=== PATIENT | male | born 1970 | race Hispanic/Latino ===

== ENCOUNTER 2025-02-24 12:21 | Inpatient (IN) | payer OTHER ==
[2025-02-24 13:40] LABS: Absolute Lymphocytes (CBC) 1.6 K/uL (0.7-4.9); Hematocrit 29.4 % (39.6-49.0); Hemoglobin 9.9 g/dL (13.6-17.9); MCH 30.7 pg (27.0-35.0); MCHC 33.5 g/dL (32.0-36.0); MCV 91.4 fL (80-100); MPV 7.8 fL (7.6-11.3); Nucleated RBC Absolute Count 0.0 (0-0); Nucleated Red Blood Cells % 0.0 % (0-0); RBC Red Blood Cell Count 3.22 M/uL (4.33-5.43); White Blood Count 5.20 thou/uL (4.3-10.9)
[2025-02-24 13:58] LABS: Anion Gap 13.0 mEq/L (5.0-15.0); BUN Blood Urea Nitrogen 104.0 mg/dL (7-18); Glucose Level 205.0 mg/dL (74-106); Magnesium 2.7 mg/dL (1.6-2.4); Potassium 6.0 mEq/L (3.5-5.1)
--- NOTE | 2025-02-24 14:23 | ER ---
Nurse's Notes [facility] Name: Chiki Emerson Jr Age: 54 yrs Sex: Male : 1970 Arrival Date: 02/24/2025 Time: 12:21 Bed 19 Private MD: Diagnosis: Hyperkalemia;Chronic kidney disease, unspecified Presentation: 02/24 12:45 Chief complaint: Patient states: HE HAD BLOOD WORK ON SATURDAY AND WAS CALLED AND ADVISED dd2 TO COME TO THE ER WITH A POTASSIUM OF 6.7. Coronavirus screen: At this time, the client does not indicate any symptoms associated with coronavirus-19. Ebola Screen: No symptoms or risks identified at this time. Initial Sepsis Screen: Does the patient meet any 2 criteria? No. Patient's initial sepsis screen is negative. Does the patient have a suspected source of infection? No. Patient's initial sepsis screen is negative. Risk Assessment: Do you want to hurt yourself or someone else? Patient reports no desire to harm self or others. Onset of symptoms was February 24, 2025. 12:45 Method Of Arrival: Ambulatory dd2 12:45 Acuity: HITESH 3 dd2 Triage Assessment: 12:48 General: Appears in no apparent distress. Behavior is calm, cooperative, appropriate dd2 for age. Pain: Denies pain. 12:48 EENT: No deficits noted. No signs and/or symptoms were reported regarding the EENT dd2 system. Neuro: No deficits noted. Cardiovascular: No deficits noted. Respiratory: No deficits noted. GI: No deficits noted. No signs and/or symptoms were reported involving the gastrointestinal system. : No deficits noted. No signs and/or symptoms were reported regarding the genitourinary system. Derm: No deficits noted. No signs and/or symptoms reported regarding the dermatologic system. Musculoskeletal: No deficits noted. No signs and/or symptoms reported regarding the musculoskeletal system. Historical: - Allergies: 12:48 No Known Allergies; dd2 - PMHx: 12:48 Diabetes mellitus; Cerebrovascular accident; Hypertensive disorder; Congestive heart dd2 failure; Myocardial infarction; CAD; Kidney disease; Hypercholesterolemia; - PSHx: 12:48 Appendectomy; TOE AMPUTATION; dd2 - Immunization history:: Adult Immunizations up to date. - Infectious Disease History:: Denies. - Social history:: Smoking status: Patient denies any tobacco usage or history of. Screenin:20 [facility] ED Fall Risk Assessment (Adult) History of falling in the last 3 months, kj2 including since admission No falls in past 3 months (0 pts) Confusion or Disorientation No (0 pts) Intoxicated or Sedated No (0 pts) Impaired Gait No (0 pts) Mobility Assist Device Used No (0 pt) Altered Elimination No (0 pt) Score/Fall Risk Level 0 - 2 = Low Risk Maintained a safe environment, Hourly rounding (assess needs \T\ fall precautionary measures) done. Abuse screen: Denies threats or abuse. Denies injuries from another. Nutritional screening: No deficits noted. Tuberculosis screening: No symptoms or risk factors identified. Assessment: 13:21 Reassessment: Patient appears in no apparent distress at this time. General: Appears in kj2 no apparent distress. Behavior is calm, cooperative. Pain: Denies pain. Neuro: No deficits noted. Cardiovascular: Patient's skin is warm and dry. Respiratory: Airway is patent Respiratory effort is unlabored. GI: No signs and/or symptoms were reported involving the gastrointestinal system. : No signs and/or symptoms were reported regarding the genitourinary system. 14:16 Reassessment: Patient appears in no apparent distress at this time. Patient and/or kj2 family updated on plan of care and expected duration. Pain level reassessed. Patient is alert, oriented x 3, equal unlabored respirations, skin warm/dry/pink. 15:28 Reassessment: Patient appears in no apparent distress at this time. Patient and/or kj2 family updated on plan of care and expected duration. Pain level reassessed. Patient is alert, oriented x 3, equal unlabored respirations, skin warm/dry/pink. 16:56 Reassessment: rechecl glucose at bedside 82bgl. kj2 Vital Signs: 12:45 BP 111 / 67; Pulse 75; Resp 16; Temp 97.9; Pulse Ox 100% ; Weight 102.51 kg; Height 5 dd2 ft. 9 in. ; Pain 0/10; 14:16 BP 93 / 56; Pulse 77; Resp 18; Pulse Ox 100% on R/A; kj2 15:15 BP 103 / 62; Pulse 86; Resp 20; Pulse Ox 100% on R/A; kj2 12:45 Body Mass Index 33.37 (102.51 kg, 175.26 cm) dd2 12:45 Pain Scale: Adult dd2 ED Course: 12:24 Patient arrived in ED. mr 12:24 CatrachoWilberChelleGEOVANNI wang is [facility]. kb 12:24 Chidi Tolliver DO is Attending Physician. kb 12:48 Triage completed. dd2 12:48 Arm band placed on. dd2 13:19 Elizabeth Porter, JJ is Primary Nurse. kj2 13:21 Patient has correct armband on for positive identification. Provided Education on: call kj2 light. 14:17 Inserted saline lock: 20 gauge in left antecubital area, using aseptic technique. Blood kj2 collected. Flushed with 10 mL NS. 14:23 Jose Antonio Sethi MD is Hospitalizing Provider. kb 17:52 No provider procedures requiring assistance completed. Patient admitted, IV remains in kj2 place. Administered Medications: 15:03 Drug: Albuterol Inhalation 2.5 mg Inhalation once Route: Inhalation; kj2 17:51 Follow up: Response: No adverse reaction kj2 15:27 Drug: D50W IVP 50 ml IVP once; (1 amp) Route: IVP; Site: left antecubital; kj2 17:52 Follow up: Response: No adverse reaction kj2 15:27 Drug: Insulin Regular Human IVP 10 units IVP once {Co-Signature: me1 (Michael, kj2 Leyla GARDNER).} Route: IVP; Site: left antecubital; 17:51 Follow up: Response: No adverse reaction kj2 15:27 Drug: Lokelma Powder 10 grams PO once Route: PO; kj2 17:51 Follow up: Response: No adverse reaction kj2 15:27 Drug: NS 0.9% IV 1000 ml IV at 1 bolus Per protocol; to be given as a bolus over 60 kj2 minutes Route: IV; Rate: 1 bolus; Site: left antecubital; 16:40 Follow up: IV Status: Completed infusion; IV Intake: 1000ml kj2 16:35 Drug: Furosemide IVP 40 mg IVP once; give after ns bolus Route: IVP; Site: left kj2 antecubital; 17:51 Follow up: Response: No adverse reaction kj2 17:51 Follow up: Response: No adverse reaction kj2 16:40 Dru.45% NS 1000mL + Sodium BicarbonatE 50 mEq/L - (NS IV 0.45 % 1000 ml, Sodium kj2 Bicarbonate IVP 75 mEq) IV at 100 ml/hr continuous; after NS and Lasix complete Route: IV; Rate: 100 ml/hr; Site: left antecubital; 17:50 Follow up: IV Status: Infusion continued upon admission kj2 Medication: 13:22 VIS not applicable for this client. kj2 Intake: 16:40 IV: 1000ml; Total: 1000ml. kj2 Outcome: 14:23 Decision to Hospitalize by Provider. kb 17:52 Admitted to Tele accompanied by tech, kj2 17:52 Condition: stable 17:53 Patient left the ED. kj2 Signatures: Chelle Hayden, [employer] ACTOR-Meera Fuentes, [place] mr Elizabeth Porter, RN RN kj2 LACEY LEON RN RN dd2 Leyla Rodriguez RN me1
--- NOTE | 2025-02-24 14:23 | EDPHYS ---
Physician Documentation [facility] Name: Chiki Emerson Jr Age: 54 yrs Sex: Male : 1970 Arrival Date: 02/24/2025 Time: 12:21 Bed 19 Private MD: ED Physician Chidi Tolliver HPI: 02/24 12:33 This 54 yrs old Male presents to ER via Unassigned with complaints of Abnormal kb Lab Results. 12:33 Patient is a 54-year-old male who presents for high potassium. States he had his kb routine blood work done on Saturday with Dr. Shaw, got call today that his potassium was 6.7 so he needed to come to the ER. Denies any symptoms.. Historical: - Allergies: 12:48 No Known Allergies; dd2 - PMHx: 12:48 Diabetes mellitus; Cerebrovascular accident; Hypertensive disorder; Congestive heart dd2 failure; Myocardial infarction; CAD; Kidney disease; Hypercholesterolemia; - PSHx: 12:48 Appendectomy; TOE AMPUTATION; dd2 - Immunization history:: Adult Immunizations up to date. - Infectious Disease History:: Denies. - Social history:: Smoking status: Patient denies any tobacco usage or history of. ROS: 12:34 Constitutional: As per HPI kb Exam: 12:34 Constitutional: This is a well developed, well nourished patient who is awake, alert, kb and in no acute distress. Head/Face: Normocephalic, atraumatic. ENT: Moist Mucous membranes Cardiovascular: Regular rate Respiratory: Respirations even and unlabored. No increased work of breathing. Talking in full sentences Skin: Warm, dry with normal turgor. Normal color. MS/ Extremity: Pulses equal, no cyanosis. Neurovascular intact. Full, normal range of motion. Neuro: Awake and alert, GCS 15, oriented to person, place, time, and situation. 15:02 ECG was reviewed by the Attending Physician. kb Vital Signs: 12:45 BP 111 / 67; Pulse 75; Resp 16; Temp 97.9; Pulse Ox 100% ; Weight 102.51 kg; Height 5 dd2 ft. 9 in. ; Pain 0/10; 14:16 BP 93 / 56; Pulse 77; Resp 18; Pulse Ox 100% on R/A; kj2 15:15 BP 103 / 62; Pulse 86; Resp 20; Pulse Ox 100% on R/A; kj2 12:45 Body Mass Index 33.37 (102.51 kg, 175.26 cm) dd2 12:45 Pain Scale: Adult dd2 MDM: 12:24 Medical Screening Exam initiated kb 13:09 Data reviewed: vital signs, nurses notes. kb 14:20 Differential diagnosis: acute kidney injury, hyperkalemia, ekg changes. Consideration kb of Admission/Observation Patient was admitted/placed on observation. Escalation of care including admission/observation considered. Management of patient was discussed with the following: Hospitalist: Mina rossi, pt accepted for admission under Dr Sethi. Historians other than the Patient: Spouse/Significant Other: spouse. Counseling: I had a detailed discussion with the patient and/or guardian regarding the historical points, exam findings, and any diagnostic results supporting the discharge/admit diagnosis, lab results, the need for further work-up and treatment in the hospital. 02/24 12:33 Order name: Basic Metabolic Panel; Complete Time: 14:15 kb 02/24 12:33 Order name: CBC with Diff; Complete Time: 13:42 kb 02/24 12:33 Order name: Magnesium; Complete Time: 14:15 kb 02/24 17:07 Order name: Glucose, Ancillary Testing; Complete Time: 17:12 EDMS 02/24 12:33 Order name: Cardiac monitoring; Complete Time: 14:17 kb 02/24 12:33 Order name: EKG - Nurse/Tech; Complete Time: 14:17 kb 02/24 12:33 Order name: IV Saline Lock; Complete Time: 14:17 kb 02/24 12:33 Order name: Labs collected and sent; Complete Time: 14:17 kb 02/24 12:33 Order name: O2 Per Protocol; Complete Time: 14:17 kb 02/24 12:33 Order name: O2 Sat Monitoring; Complete Time: 14:17 kb EC:02 Rate is 73 beats/min. Rhythm is regular. QRS [place] is Normal. NE interval is normal at kb 170 msec. QRS interval is normal at 92 msec. QT interval is normal at 414 msec. Administered Medications: 15:03 Drug: Albuterol Inhalation 2.5 mg Inhalation once Route: Inhalation; kj2 17:51 Follow up: Response: No adverse reaction kj2 15:27 Drug: D50W IVP 50 ml IVP once; (1 amp) Route: IVP; Site: left antecubital; kj2 17:52 Follow up: Response: No adverse reaction kj2 15:27 Drug: Insulin Regular Human IVP 10 units IVP once {Co-Signature: 1 (Michael, kj2 Leyla GARDNER).} Route: IVP; Site: left antecubital; 17:51 Follow up: Response: No adverse reaction kj2 15:27 Drug: Lokelma Powder 10 grams PO once Route: PO; kj2 17:51 Follow up: Response: No adverse reaction kj2 15:27 Drug: NS 0.9% IV 1000 ml IV at 1 bolus Per protocol; to be given as a bolus over 60 kj2 minutes Route: IV; Rate: 1 bolus; Site: left antecubital; 16:40 Follow up: IV Status: Completed infusion; IV Intake: 1000ml kj2 16:35 Drug: Furosemide IVP 40 mg IVP once; give after ns bolus Route: IVP; Site: left kj2 antecubital; 17:51 Follow up: Response: No adverse reaction kj2 17:51 Follow up: Response: No adverse reaction kj2 16:40 Dru.45% NS 1000mL + Sodium BicarbonatE 50 mEq/L - (NS IV 0.45 % 1000 ml, Sodium kj2 Bicarbonate IVP 75 mEq) IV at 100 ml/hr continuous; after NS and Lasix complete Route: IV; Rate: 100 ml/hr; Site: left antecubital; 17:50 Follow up: IV Status: Infusion continued upon admission kj2 Disposition: 18:45 I was immediately available on-site in the Emergency Department for consultation in the ms3 care of the patient. Disposition Summary: 02/24/25 14:23 Hospitalization Ordered Notes: Hospitalization Status: Observation kb Provider: Jose Antonio Sethi Location: Telemetry/MedSurg (observation) kb Condition: Stable kb Problem: new kb Symptoms: are unchanged kb Bed/Room Type: Standard Room Assignment: 426(02/24/25 15:08) hb Diagnosis - Hyperkalemia kb - Chronic kidney disease, unspecified kb Forms: - Medication Reconciliation Form kb - SBAR form kb - Leadership Thank You Letter kb Signatures: Dispatcher [employer] Chelle Reid FNP-C FNP-Ckb Attema, [place], GROCERY BUYER-C GROCERY BUYER-Cla1 Nat Carolina, RN RN hb Sharee, Chidi, DO DO ms3 Elizabeth Porter RN RN kj2 LACEY LEON RN RN dd2 Leyla Rodriguez RN me1 Corrections: (The following items were deleted from the chart) 12:33 12:33 BASIC METABOLIC PANEL+C.LAB.BRZ ordered. EDMS EDMS 12:33 12:33 CBC+H.LAB.BRZ ordered. EDMS EDMS 12:33 12:33 MAGNESIUM+C.LAB.BRZ ordered. EDMS EDMS 15:08 14:23 kb hb
[2025-02-24] MEDS ORDERED: ALBUTEROL 2.5 MG/3 ML NEB SOL ONE (14:55)
[2025-02-24] MEDS ORDERED: D50W 25 GM/50 ML SYRINGE IV ONE (14:56)
[2025-02-24] MEDS ORDERED: INSULIN REGULAR (HUMAN) 100 UNIT/ML ONE (14:56)
[2025-02-24] MEDS ORDERED: ONDANSETRON 4 MG/2 ML VIAL IV PRN (15:06)
[2025-02-24] MEDS: SODIUM ZIRCONIUM CYCLOSILICATE 10 GM/PKT ONE (15:09)
[2025-02-24] MEDS ORDERED: NA CHLORIDE 0.9% 1,000 ML ONE (15:17)
[2025-02-24] MEDS ORDERED: FUROSEMIDE 40 MG/4 ML VIAL ONE (15:18)
[2025-02-24] MEDS: SODIUM ZIRCONIUM CYCLOSILICATE 10 GM/PKT PO ONE (15:30)
[2025-02-24] MEDS: NACHLORIDE 0.45% 1,000 ML with NA BICARB 8.4% 75 MEQ IV SCH (15:30)
[2025-02-24] MEDS: INSULIN REGULAR (HUMAN) 100 UNIT/ML SQ SCH (16:30)
--- NOTE | 2025-02-24 17:01 | P.HP ---
Certification for Inpatient Patient admitted to: Inpatient With expected LOS: >2 Midnights Patient will require the following post-hospital care: None Practitioner: I am a practitioner with admitting privileges, knowledge of patient current condition, hospital course, and medical plan of care. Services: Services provided to patient in accordance with Admission requirements found in Title 42 Section 412.3 of the Code of Federal Regulations Patient History Date of Service: 02/24/25 Reason for admission: Hyperkalemia, CKD History of Present Illness: 54-year-old male with history of insulin-dependent diabetes, CAD, CVA, hypertension, PAD and CKD with unknown renal baseline presents the hospital for abnormal outpatient labs. He reportedly had an outpatient lab that showed his potassium was 6.7 and he was referred to the emergency department. He does state that he has been speaking with nephrology about the possibility of needing to initiate dialysis. Patient was evaluated in the emergency department as potassium was 6.0 bicarb was 19 BUN 104 creatinine 4.32 GFR 15 glucose 205. He was given Lokelma, insulin, dextrose, albuterol initially. Patient be admitted for worsening renal function, hyperkalemia, uremia. does report that he has been confused and unsteady for the last 2 to 3 days as well. - Past Medical/Surgical History -: Insulin-dependent diabetes -: History of CAD, CVA -: History of PAD -: Hypertension -: Multiple toe amputations -: Appendectomy Psychosocial/ Personal History: Lives at home with his - Social History Alcohol use: No CD- Drugs: No Caffeine use: Yes Place of Residence: Home Review of Systems 10-point ROS is otherwise unremarkable Neurological: Confusion Physical Examination - Vital Signs Respirations: 18 - Physical Exam General: Alert, In no apparent distress, Oriented x3 HEENT: Atraumatic, PERRLA, EOMI Neck: Supple, 2+ carotid pulse no bruit, No LAD Respiratory: Clear to auscultation bilaterally, Normal air movement Cardiovascular: Regular rate/rhythm, Normal S1 S2 Gastrointestinal: Normal bowel sounds, No tenderness Musculoskeletal: No tenderness Neurological: Normal gait, Normal speech, Normal strength at 5/5 x4 extr, Normal affect - Studies Laboratory Data (last 24 hrs) 02/24/25 02/24/25 13:30 13:30 WBC 5.20 Hgb 9.9 L Hct 29.4 L Plt Count 220 Sodium 142 Potassium 6.0 H BUN 104 H Creatinine 4.32 H Glucose 205 H Magnesium 2.7 H Assessment and Plan - Plan Assessment: JAROD with hyperkalemia and uremia Diabetes mellitus type 2insulin-dependent hyperglycemia History of CAD, CVA, PAD Hypertension Hyperlipidemia Plan: JAROD with hyperkalemia and uremia Given Lokelma, insulin, dextrose, albuterol in ED After discussing with nephrology, given 1 L NS bolus, 40 mg IV Lasix, started on half NS bicarb drip Repeat chemistry in the morning, obtain CPK and TSH N.p.o. for midnight in case of worsening renal function or if there is not significant improvement may require initiation of inpatient HD Diabetes mellitus type 2insulin-dependent hyperglycemia ACHS Accu-Chek, sliding scale insulin History of CAD, CVA, PAD Hypertension Hyperlipidemia Continue home medications when verified DVT PPX: Heparin subcu Code status: Full code Discharge Plan: Home Plan to discharge in: Greater than 2 days - Advance Directives Does patient have a Living Will: No Does patient have a Durable POA for Healthcare: No - Code Status/Comfort Care Code Status Assessed: Yes (Full code) Critical Care: No Time Spent Managing Pts Care (In Minutes): 74
[2025-02-24] MEDS: HEPARIN 5000 UNIT/ML 1 ML VIAL SQ SCH (20:13)
[2025-02-25 05:12] LABS: Absolute Lymphocytes (CBC) 1.8 K/uL (0.7-4.9); Hematocrit 27.8 % (39.6-49.0); Hemoglobin 9.7 g/dL (13.6-17.9); MCH 31.3 pg (27.0-35.0); MCHC 35.1 g/dL (32.0-36.0); MCV 89.2 fL (80-100); MPV 7.6 fL (7.6-11.3); Nucleated RBC Absolute Count 0.0 (0-0); Nucleated Red Blood Cells % 0.1 % (0-0); RBC Red Blood Cell Count 3.11 M/uL (4.33-5.43); White Blood Count 4.60 thou/uL (4.3-10.9)
[2025-02-25 05:16] LABS: PT Prothrombin Time 11.3 SECONDS (10-13.0); Protime INR 1.0
[2025-02-25 05:32] LABS: Anion Gap 10.2 mEq/L (5.0-15.0); BUN Blood Urea Nitrogen 95.0 mg/dL (7-18); Glucose Level 150.0 mg/dL (74-106); Potassium 5.2 mEq/L (3.5-5.1); Thyroid Stimulating Hormone 2.3 uIU/mL (0.358-3.740)
[2025-02-25] MEDS: SODIUM ZIRCONIUM CYCLOSILICATE 10 GM/PKT PO SCH (09:56)
[2025-02-25] MEDS: FUROSEMIDE 20 MG TABLET ONE (13:25)
[2025-02-25] MEDS: FUROSEMIDE 20 MG TABLET PO SCH (13:35)
--- NOTE | 2025-02-25 14:15 | P.PN ---
Date of Service: 02/25/25 Subjective: No acute events overnight Send improvement in renal function ROS: 10 point ROS as noted above, otherwise negative Physical exam GEN: Alert, oriented, NAD HEENT: Normal conjunctiva, sclera anicteric CV: Regular rate and rhythm, no edema Pulm: Nonlabored respirations on room air ABD: Soft, nontender, nondistended MSK: No joint tenderness Integumentary: No rashes Neuro: Normal speech, normal affect Vitals reviewed Assessment: JARDO with hyperkalemia and uremia Diabetes mellitus type 2insulin-dependent hyperglycemia History of CAD, CVA, PAD Hypertension Hyperlipidemia Plan: JAROD with hyperkalemia and uremia Labs improved overnight No need for emergent renal replacement therapy Off IV fluids recheck chemistry in the morning If renal function stable may possibly discharge tomorrow Diabetes mellitus type 2insulin-dependent hyperglycemia ACHS Accu-Chek, sliding scale insulin History of CAD, CVA, PAD Hypertension Hyperlipidemia Continue home medications when verified DVT PPX: Heparin subcu Code status: Full code Discharge Plan: Home Plan to discharge in: Greater than 2 days Time Spent Managing Pts Care (In Minutes): 35
--- NOTE | 2025-02-25 16:56 | CON ---
Date of Consultation: 02/25/2025 Reason For Consultation: Elevated BUN and creatinine, hyperkalemia. History Of Present Illness: This is a pleasant 54-year-old gentleman, followed up with _ in the office with significant past medical history of diabetes for the last 15 years, complicated with neuropathy and retinopathy, legally blind on the left eye, hypertension, hyperlipidemia, alcohol abuse, CAD status post NM back in 2008, status post PCI, CVA back in 2022, chronic kidney disease st age 4 to 5 secondary to diabetes, nephropathy with baseline creatinine back in November, GFR of 22 wi th chronic hyperkalemia. The patient came to the hospital because of hyperkalemia, potassium above 6 . The patient denied any nausea, any vomiting. The patient admits that he had been eating orange on a daily basis. The patient compliant with the rest of his medications. Past Medical History: Includes: 1. Diabetes since 2009, complicated with neuropathy, retinopathy, and nephropathy. 2. Hypertension. 3. CAD status post NM back in 2008, status post PCI. 4. Chronic kidney disease, stage 4 to 5, baseline creatinine 3, GFR 20. 5. CVA back in 2022, no residual. 6. PAD. Past Surgical History: Includes: 1. Appendectomy. 2. Toe amputation. Social History: Denied smoking. Denied drinking. Denied drug abuse. Family History: Positive for diabetes and hypertension. Allergies: NO KNOWN DRUG ALLERGY. Review of Systems: Head and Neck: No red eye. No ear pain. GI: No nausea. No vomiting. : No polyuria. No dysuria. No hematuria. PARTS SALES ADVISOR: Not applicable. Respiratory: No shortness of breath. Cardiovascular: No chest pain. Neuro: Has neuropathy. Musculoskeletal: Low back pain. Physical Examination: Vital Signs: When I saw the patient, the patient lying in bed, comfortable, not in any distress. Vital Signs: Blood pressure 154/80, pulse of 75, afebrile. Chest: Clear to auscultation. Heart: S1, S2 regular. Abdomen: Soft, nontender. Extremities: No edema. Neurologic: Alert. No focality. Laboratory Data: Yesterday when the patient admitted, hemoglobin 9.9, sodium 142, potassium 6, bicar b 19, BUN 104, creatinine 4.3, calcium 9.1. Today lab data; sodium 143, potassium 5.2, bicarb 22, BU N 95, creatinine 3.6, GFR of 19, calcium 8.5, phosphorus 5.9, TSH 2.3. Hemoglobin 9.7. Current Medications: The patient on include Lokelma. IV fluid at normal saline. Home Medications: Include Jardiance, gabapentin, hydrochlorothiazide, Lokelma, metoprolol. Assessment And Plan: 1. Chronic kidney disease, stage 4 to 5, complicated with hyperkalemia and marginal acidosis. No sig nificant uremic symptoms. I do not see the need to initiate any renal replacement therapy for the ti me being. We educated the patient about low-potassium diet. We will monitor the patient. Discontin ue IV fluid for today and we will follow up. 2. Hyperkalemia, chronic. I am going to go ahead and increase his Lokelma to b.i.d. We will send fo r urine electrolytes to evaluate for transtubular potassium gradient. I am going to go ahead and sta rt the patient on Florinef, and we will start the patient on Lasix maintenance, and we will follow up the patient. 3. Hypertension, controlled. Continue currently off blood pressure medication or we will start the p atient on Lasix. We will discontinue hydrochlorothiazide to avoid any further decline in the kidney function and to facilitate more potassium diuresis. 4. Diabetes as by Primary. 5. Anemia of chronic kidney disease. We will send for workup and we will follow up. Thank you, Clifton, for allowing us to participate in the care of your patient. Time spent examining the patient [id number]; reviewing data, lab, and radiology; placing order; dis cussing the case with the patient; discussing the case with the by bedside; discussing the case with the team psychologist including hospitalist and nursing staff more than 75 minutes. SONG Voice ID: [id number] Report ID: [id number]
[2025-02-25 17:13] VITALS: BMI 32.8
[2025-02-26 07:16] LABS: Absolute Lymphocytes (CBC) 2.0 K/uL (0.7-4.9); Hematocrit 31.3 % (39.6-49.0); Hemoglobin 10.7 g/dL (13.6-17.9); MCH 30.5 pg (27.0-35.0); MCHC 34.2 g/dL (32.0-36.0); MCV 89.4 fL (80-100); MPV 7.8 fL (7.6-11.3); Nucleated RBC Absolute Count 0.0 (0-0); Nucleated Red Blood Cells % 0.0 % (0-0); RBC Red Blood Cell Count 3.50 M/uL (4.33-5.43); White Blood Count 5.50 thou/uL (4.3-10.9)
[2025-02-26 07:34] LABS: Anion Gap 9.7 mEq/L (5.0-15.0); BUN Blood Urea Nitrogen 77.0 mg/dL (7-18); Glucose Level 114.0 mg/dL (74-106); Potassium 4.7 mEq/L (3.5-5.1)
[2025-02-26 08:31] VITALS: BP 113/55; TEMP 97.8
[2025-02-26] MEDS: FLUDROCORTISONE 0.1 MG TAB PO SCH (09:06)
[2025-02-26 10:17] VITALS: O2SAT 100
--- NOTE | 2025-02-26 13:46 | P.DS ---
Admission Date: 02/24/25 Discharge Date: 02/26/25 Disposition: ROUTINE DISCHARGE Discharge Condition: GOOD Reason for Admission: Hyperkalemia, CKD Brief History of Present Illness: 54-year-old male with history of insulin-dependent diabetes, CAD, CVA, hypertension, PAD and CKD with unknown renal baseline presents the hospital for abnormal outpatient labs. He reportedly had an outpatient lab that showed his potassium was 6.7 and he was referred to the emergency department. He does state that he has been speaking with nephrology about the possibility of needing to initiate dialysis. Patient was evaluated in the emergency department as potassium was 6.0 bicarb was 19 BUN 104 creatinine 4.32 GFR 15 glucose 205. He was given Lokelma, insulin, dextrose, albuterol initially. Patient be admitted for worsening renal function, hyperkalemia, uremia. does report that he has been confused and unsteady for the last 2 to 3 days as well. Hospital Course: Assessment: JAROD with hyperkalemia and uremia Diabetes mellitus type 2insulin-dependent hyperglycemia History of CAD, CVA, PAD Hypertension Hyperlipidemia Patient was admitted to the hospital for acute kidney injury and hyperkalemia. He has known CKD stage IV. He was given IV fluids, sodium bicarb IV, Lokelma and his renal function improved, on admission his creatinine was 4.32 and is down to 3.1 today BUN was 104 on admission and is down to 77 today potassium 4.7 today Patient was seen by nephrology and is stable for discharge with the following changes to his home medication. Discontinue the olmesartan/hydrochlorothiazide 4012.5 Start taking Lasix 20 mg once daily which has been sent to your pharmacy Follow-up with nephrology in 1 week for repeat blood work/chemistry Vital Signs/Physical Exam: Temp Pulse Resp BP Pulse Ox 97.8 F 80 17 113/55 L 100 02/26/25 08:00 02/26/25 09:05 02/26/25 08:00 02/26/25 09:05 02/26/25 08:00 General: Alert, In no apparent distress, Oriented x3 HEENT: Atraumatic, PERRLA Neck: Supple, JVD not distended Respiratory: Clear to auscultation bilaterally, Normal air movement Cardiovascular: Regular rate/rhythm, Normal S1 S2 Gastrointestinal: Normal bowel sounds, No tenderness Musculoskeletal: No tenderness Integumentary: No rashes Neurological: Normal speech, Normal affect Laboratory Data at Discharge: WBC 5.50 thou/uL (4.3-10.9) 02/26/25 06:52 Hgb 10.7 g/dL (13.6-17.9) L D 02/26/25 06:52 Hct 31.3 % (39.6-49.0) L 02/26/25 06:52 Plt Count 226 thou/uL (152-406) 02/26/25 06:52 PT 11.3 SECONDS (10-13.0) 02/25/25 04:41 INR 1.00 02/25/25 04:41 Sodium 141 mEq/L (136-145) 02/26/25 06:52 Potassium 4.7 mEq/L (3.5-5.1) 02/26/25 06:52 BUN 77 mg/dL (7-18) H 02/26/25 06:52 Creatinine 3.10 mg/dL (0.70-1.30) H 02/26/25 06:52 Glucose 114 mg/dL (74-106) H 02/26/25 06:52 Phosphorus 5.9 mg/dL (2.5-4.9) H 02/25/25 04:41 Magnesium 2.7 mg/dL (1.6-2.4) H 02/24/25 13:30 Home Medications: Furosemide [Lasix*] 20 mg PO DAILY #30 tab 02/26/25 New Medications: Furosemide [Lasix*] 20 mg PO DAILY #30 tab Physician Discharge Instructions: Patient was admitted to the hospital for acute kidney injury and hyperkalemia. He has known CKD stage IV. He was given IV fluids, sodium bicarb IV, Lokelma and his renal function improved, on admission his creatinine was 4.32 and is down to 3.1 today BUN was 104 on admission and is down to 77 today potassium 4.7 today Patient was seen by nephrology and is stable for discharge with the following changes to his home medication. Discontinue the olmesartan/hydrochlorothiazide 4012.5 Start taking Lasix 20 mg once daily which has been sent to your pharmacy Follow-up with nephrology in 1 week for repeat blood work/chemistry Diet: Renal Activity: Ad hiwot Followup: Jean Paul Duckworth MD [ACTIVE - CAN ADMIT] - 1 Week (Call for appointment.) Deshaun Kim MD [Primary Care Provider] - 1-2 Weeks (Call for appointment.) Time spent managing pt's care (in minutes): 48
--- NOTE | 2025-02-27 04:32 | PN ---
Date of Progress Note: 02/26/2025 Chief Complaint: Elevated BUN and creatinine, hyperkalemia. History Of Present Illness: The patient is a 54-year-old man, followed by Dr. Duckworth and he has h istory of diabetes mellitus for 15 years, complicated with retinopathy and neuropathy, legally blind on the left eye. He has history of hypertension, hyperlipidemia, alcohol abuse, and history of chron ic kidney disease stage 4, advancing to stage 5 due to diabetes mellitus. He has had diabetic nephro ray previously in November. His creatinine level was elevated, GFR was 22. Physical Examination: Lungs: . Heart: S1, S2. Abdomen: Soft, benign. Extremities: Trace edema. Impression And Plan: 1. The patient has chronic kidney disease stage 4 advancing to stage 5. He was found to have hyperka lemia and mild metabolic acidosis related to chronic and acute kidney insufficiency. The patient did not require renal replacement therapy, although he needs to follow up with his primary bulk gas specialist for further recommendation for us to initiate hemodialysis. The patient is asymptomatic. and plan is to start the patient on Florinef as well as Lasix maintenance dose. 2. Hypertension, controlled. Continue current blood pressure medication. 3. Diabetes mellitus. Per Primary Team, anemia due to chronic kidney disease. Continue to monitor H and H. EB/MODL Voice ID: [id number] Report ID: [id number]
== END 2025-02-26 10:55 | disposition home or self-care (01) | DRG 683 ==
LOC: ER 12:21 → ERHOLD 14:54 → 4TH 15:26
PROVIDERS: ADMIT Hospitalist; ATTEND Hospitalist
DX: N17.9 Acute kidney failure, unspecified (principal); I12.0 Hypertensive chronic kidney disease with stage 5 chronic kidney disease or end stage renal disease; N18.5 Chronic kidney disease, stage 5; E87.5 Hyperkalemia; E11.22 Type 2 diabetes mellitus with diabetic chronic kidney disease; E11.65 Type 2 diabetes mellitus with hyperglycemia; E11.51 Type 2 diabetes mellitus with diabetic peripheral angiopathy without gangrene; E11.40 Type 2 diabetes mellitus with diabetic neuropathy, unspecified; D63.1 Anemia in chronic kidney disease; H54.8 Legal blindness, as defined in USA; E78.00 Pure hypercholesterolemia, unspecified; I25.2 Old myocardial infarction; I25.10 Atherosclerotic heart disease of native coronary artery without angina pectoris; Z79.4 Long term (current) use of insulin; Z90.49 Acquired absence of other specified parts of digestive tract; Z86.73 Personal history of transient ischemic attack (TIA), and cerebral infarction without residual deficits
CPT/HCPCS: 36415; 80048; 82550; 82947; 83735; 84100; 84439; 84443; 85025; 85610; 93005; 96361; 96365; 96375; 99285; J1644; J1815; J1938; J7030; J7613